=== PATIENT | male | born 2005 | race Two or more races ===

== ENCOUNTER 2024-03-28 02:14 | Emergency (ER) | payer OTHER ==
[~2024-03-28] VITALS: Ht 172.7 cm; Wt 81.6 kg
[~2024-03-28 02:14] MED LIST: AUGMENTIN ES-6200 ML PO; BACTROBAN OINT22 GM TP
[2024-03-28] MEDS ORDERED: ACETAMINOPHEN 500 MG GEL..CAP PO STA (03:55)
[2024-03-28] MEDS ORDERED: ACETAMINOPHEN 500 MG GEL..CAP PO ONE (04:06)
== END 2024-03-28 04:45 | disposition home or self-care (01) ==
LOC: ER 02:15
DX: S30.1XXA Contusion of abdominal wall, initial encounter (principal); V49.9XXA Car occupant (driver) (passenger) injured in unspecified traffic accident, initial encounter; Y93.89 Activity, other specified; Y92.89 Other specified places as the place of occurrence of the external cause; Y99.8 Other external cause status